=== PATIENT | female | born 1980 | race Caucasian/White ===

== ENCOUNTER 2016-12-28 11:56 | Emergency (ER) | payer BC | END 2016-12-28 13:19 | disposition home or self-care (01) | LOC: ER 11:56 | DX: H65.03 Acute serous otitis media, bilateral (principal); J01.10 Acute frontal sinusitis, unspecified; J01.00 Acute maxillary sinusitis, unspecified; N30.00 Acute cystitis without hematuria; Z87.891 Personal history of nicotine dependence | CPT/HCPCS: 81001; 87088 ==